=== PATIENT | female | born 1990 | race Caucasian/White ===

== ENCOUNTER 2019-10-19 17:27 | Emergency (ER) | payer SELFPAY ==
[~2019-10-19] VITALS: Ht 172.7 cm; Wt 83.9 kg
[2019-10-19 17:38] VITALS: BP 108/85
--- NOTE | 2019-10-19 17:43 | NUR ---
PT TO BED 8 WITH STEADY GAIT
--- NOTE | 2019-10-19 17:43 | NUR ---
FLU SWAB COLLECTED
[2019-10-19] MEDS ORDERED: ONDANSETRON 4 MG ODT PO ONE (18:05)
--- NOTE | 2019-10-19 18:36 | NUR ---
PT PASSESS PO CHALLENGE, REPORTS DECREASE IN NAUSEA. PT TOLERATING WATER. PAIN 3/10 BODY ACHES
[2019-10-19 18:38] VITALS: BP 113/82
--- NOTE | 2019-10-19 18:38 | NUR ---
Patient discharged with v/s stable. Written and verbal after care instructions given and explained. Patient alert, oriented and verbalized understanding of instructions. Ambulatory with steady gait. All questions addressed prior to discharge. ID band removed. Patient advised to follow up with PMD. Rx of ZOFRAN given. Patient educated on indication of medication including possible reaction and side effects. Opportunity to ask questions provided and answered. PT GIVEN EXCUSE FOR WORK
== END 2019-10-19 18:38 | disposition home or self-care (01) ==
LOC: MED 17:27
DX: J10.1 Influenza due to other identified influenza virus with other respiratory manifestations (principal)
CPT/HCPCS: 81025; 87804; 99283; Q0162